=== PATIENT | female | born 1960 | race Caucasian/White ===

== ENCOUNTER → 2023-08-21 | Outpatient (CLI) | payer OTHER, SELFPAY ==
--- NOTE | 2023-08-21 12:57 | NEURO ---
NCS and/or EMG Patient Report Ordering Doctor: Umair Oleary DATE OF SERVICE: 08/21/23 Nikki presents for electrodiagnostic testing of the upper limbs. She reports numbness and tingling in both hands, worse on the left side. Electrodiagnostic findings: Left median motor nerve demonstrates prolonged latency with normal amplitude and conduction velocity. Right median motor nerve demonstrates prolonged latency with normal amplitude and conduction velocity. Left ulnar motor nerve demonstrates an approximately 20% drop in conduction across the elbow. There is no drop in motor amplitude across the elbow. Right ulnar motor response is within normal limits. Median and ulnar F waves are normal. Prolonged right median sensory latency at the wrist. Prolonged left median sensory latency at the wrist. Normal ulnar and radial sensory responses. Needle EMG testing was performed in the upper limbs. All muscles tested showed no evidence of denervation with normal motor unit action potentials. Electrodiagnostic impression: This is an abnormal study in the upper limbs. 1. Electrodiagnostic findings suggestive of bilateral median mononeuropathy. This is consistent with a mild bilateral carpal tunnel syndrome. 2. Electrodiagnostic findings suggestive of left-sided ulnar neuropathy. This is consistent with a mild left cubital tunnel syndrome. 3. There is no electrodiagnostic evidence for cervical radiculopathy.
== END | disposition home or self-care (01) ==
LOC: PSN 08:56
PROVIDERS: PCP Internal Medicine; Referring Provider Internal Medicine; Visit Provider Internal Medicine
DX: G56.03 Carpal tunnel syndrome, bilateral upper limbs (principal)
CPT/HCPCS: 95886; 95911